=== PATIENT | female | born 1965 | race Caucasian/White ===

== ENCOUNTER → 2017-06-21 | Outpatient (CLI) | payer BC ==
--- NOTE | 2017-06-22 17:44 | RADIOLOGY IMAGING REPORT ---
FACILITY: [facility] PATIENT NAME: DELTA ALDANA : [id number] MR: [id number] V: [id number] EXAM DATE: ORDERING PHYSICIAN: SATINDER QUIÑONES TECHNOLOGIST: Oxana Moran PROCEDURE:BILATERAL DIGITAL SCREENING MAMMOGRAM WITH CAD ASSISTED INTERPRETATION & 3D TOMOSYNTHESIS COMPARISON:Prior mammograms 01/28/16, 10/16/14, 08/12/13. INDICATIONS:SCREENING FINDINGS: Moderately dense fibroglandular tissue is seen throughout the breasts. The parenchymal pattern has remained stable allowing for difference in mammographic technique & patient positioning. There is no evidence of malignant appearing mass, malignant appearing calcifications or other secondary sign of malignancy in either breast. DIAGNOSTIC CATEGORY 1--NEGATIVE. RECOMMENDATIONS: ROUTINE MAMMOGRAM AND CLINICAL EVALUATION. IMPRESSION: BIRADS 1: Negative No significant abnormality is seen. Dictated by: Radha Jimenez M.D. on 06/22/2017 at 15:53 Transcribed by: DAVID on 06/22/2017 at 15:56 Approved by: Radha Jimenez M.D. on 06/22/2017 at 17:43 [facility]
== END ==
LOC: MAMO 14:21
DX: Z12.31 Encounter for screening mammogram for malignant neoplasm of breast (principal)
CPT/HCPCS: 77063; 77067